=== PATIENT | female | born 1995 | race African-American/Black ===

== ENCOUNTER 2018-02-10 15:35 | Emergency (ER) | payer MEDICAID, OTHER ==
--- NOTE | 2018-02-10 15:42 | EDPHY ---
H & P Smoking Status: Current every day smoker Time Seen by Provider: 02/10/18 15:41 HPI/ROS: CHIEF COMPLAINT: Irregular periods and pelvic pain HISTORY OF PRESENT ILLNESS: Patient is a 23-year-old female here with her mother concern for regular periods for the last 2 months and lower abdominal pain. States she has had a Mirena in no for the last 2 and half years and has had monthly regular periods since then with no spotting in between her periods. The last 2 months she has had her regular menstrual cycle but has also had intermittent spotting and pelvic pain. She denies any vaginal discharge or history of STD. She has not checked herself her . She is not currently sexually active. She denies any fever or chills or change in appetite. She does report mild pain with urination but no fever or flank pain. She has no history of kidney stones. No history of abdominal surgeries. She is concerned that her IUD has moved. ROS As detailed in HPI (Baljinder Mandujano) Physical Exam: General: Alert and oriented. Nontoxic appearing. No acute distress HEENT: Pupils PERRLA. No oral lesions. Cardiopulmonary: Regular rate and rhythm. No lower extremity edema Abdomen: Soft and nontender abdomen with mild suprapubic tenderness. No right lower quadrant or right upper quadrant tenderness. No peritoneal signs. No CVA tenderness. Skin: [place] warm and dry. No lesions. Muscle skeletal: Moving all 4 extremities. Equal strength in upper extremities and lower extremities. Ambulatory. (Baljinder Mandujano) Constitutional: Initial Vital Signs Temperature (C) 36.7 C 02/10/18 15:35 Heart Rate 84 02/10/18 15:35 Respiratory Rate 16 02/10/18 15:35 Blood Pressure 130/93 H 02/10/18 15:35 O2 Sat (%) 98 02/10/18 15:35 O2 Delivery Mode Room Air Allergies/Adverse Reactions: Penicillins Allergy (Mild, Verified 02/10/18 15:40) Rash Home Medications: Medication Instructions Recorded Cephalexin [Keflex] 500 mg PO TID 7 Days cap 02/10/18 Iud 02/10/18 Phenazopyridine HCl [Pyridium] 200 mg PO PC #10 tab 02/10/18 Medical Decision Making - Diagnostics Imaging Results: Imaging Impressions Pelvic/Renal Ultrasound 02/10/18 15:52 Impression: 1. Appropriately-positioned intrauterine device. 2. There is a 4.3 x 3.1 x 3.8 cm solid vascular right ovarian mass (with the above differential considerations). Gynecologic consultation is suggested, and it may also be worthwhile to check a serum CA-125 level and an alpha- fetoprotein level. There is no evidence of torsion. Findings were discussed with Mar Toro PA-C at 17:22, on 02/10/2018. Abdomen CT 02/10/18 17:39 Impression: 1. Normal CT appearance of the appendix. 2. Mild constipation. 3. Appropriately-positioned intrauterine contraceptive device. 4. The right ovarian vascular solid mass is difficult to discern, and the prior pelvic sonogram report should be separately referenced (with differential considerations and follow-up, as mentioned). 5. Questionable mild urinary bladder wall thickening. Correlation with a urinalysis is suggested to exclude a UTI. Findings were discussed with Mar Toro PA-C at 18:08, on 02/10/2018. ED Course/Re-evaluation: 5:36 p.m.: I assumed care the patient from BILL Mandujano, pending ultrasound results. Ultrasound results (see full report by radiology) shows a solid vascular right ovarian mass. A consulted via telephone with Dr. Abigail Arango, OBGYN, at this time. I specifically inquired about tumor markers which she recommended against at this time. She recommended follow up in the office, form that this is more than likely dermoid cyst. Dr. Arango recommended follow- up in the next few weeks. I re-evaluated the patient at this time and discussed these results with the patient and mother and examined the patient. She has full slightly tender to palpation right lower quadrant . I recommended CT imaging to rule out appendicitis. Indications risks benefits discussed and patient verbally consents. 6:26 p.m.: CT abdomen pelvis is negative for appendicitis. Patient has been re -evaluated by myself. Plan will be discharge, treated with Keflex for cystitis , follow-up with OBGYN for her ovarian mass. Usual and customary abdominal precautions instructions provided. All questions and concerns addressed by myself. Care of patient under supervision of secondary supervising physician Dr Young with whom I discussed case. (Jass Toro) - Data Points Laboratory Results: Laboratory Results 02/10/18 16:00 02/10/18 16:00 02/10/18 02/10/18 02/10/18 16:50 16:00 16:00 WBC RBC Hgb Hct MCV MCH MCHC RDW Plt Count MPV Neut % (Auto) Lymph % (Auto) [place] % (Auto) Eos % (Auto) Baso % (Auto) Nucleat RBC Rel Count Absolute Neuts (auto) Absolute Lymphs (auto) Absolute Monos (auto) Absolute Eos (auto) Absolute Basos (auto) Absolute Nucleated RBC Immature Gran % Immature Gran # Sodium 139 mEq/L mEq/L (135-145) Potassium 4.2 mEq/L mEq/L (3.5-5.2) Chloride 107 mEq/L mEq/L (97-110) Carbon Dioxide 22 mEq/l mEq/l (22-31) Anion Gap 10 mEq/L mEq/L (6-14) BUN 9 mg/dL mg/dL (7-23) Creatinine 0.7 mg/dL mg/dL (0.6-1.0) Estimated GFR > 60 Glucose 110 mg/dL H mg/dL (70-100) Calcium 9.5 mg/dL mg/dL (8.5-10.4) Total Bilirubin 0.5 mg/dL mg/dL (0.1-1.4) AST 27 IU/L IU/L (14-46) ALT 13 IU/L IU/L (9-52) Alkaline Phosphatase 101 IU/L IU/L (38-126) Total Protein 8.0 g/dL g/dL (6.3-8.2) Albumin 4.2 g/dL g/dL (3.5-5.0) Beta HCG, Qual NEGATIVE Urine Color YELLOW Urine Appearance HAZY Urine pH 5.0 (5.0-7.5) Ur Specific [place] 1.024 (1.002-1.030) Urine Protein 1+ H (NEGATIVE) Urine Ketones NEGATIVE (NEGATIVE) Urine Blood 2+ H (NEGATIVE) Urine Nitrate NEGATIVE (NEGATIVE) Urine Bilirubin NEGATIVE (NEGATIVE) Urine Urobilinogen 2.0 EU H EU (0.2-1.0) Ur Leukocyte Esterase 2+ H (NEGATIVE) Urine RBC 10-15 /hpf H /hpf (0-3) Urine WBC 50-182 /hpf H /hpf (0-3) Ur Epithelial Cells TRACE /lpf /lpf (NONE-1+) Urine Mucus 3+ /lpf H /lpf (NONE-1+) Urine Glucose NEGATIVE (NEGATIVE) 02/10/18 16:00 WBC 6.11 10^3/uL 10^3/uL (3.80-9.50) RBC 4.77 10^6/uL 10^6/uL (4.18-5.33) Hgb 15.0 g/dL g/dL (12.6-16.3) Hct 43.7 % % (38.0-47.0) MCV 91.6 fL fL (81.5-99.8) MCH 31.4 pg pg (27.9-34.1) MCHC 34.3 g/dL g/dL (32.4-36.7) RDW 12.5 % % (11.5-15.2) Plt Count 309 10^3/uL 10^3/uL (150-400) MPV 10.6 fL fL (8.7-11.7) Neut % (Auto) 51.5 % % (39.3-74.2) Lymph % (Auto) 39.3 % % (15.0-45.0) Sebastian % (Auto) 6.9 % % (4.5-13.0) Eos % (Auto) 1.8 % % (0.6-7.6) Baso % (Auto) 0.3 % % (0.3-1.7) Nucleat RBC Rel Count 0.0 % % (0.0-0.2) Absolute Neuts (auto) 3.15 10^3/uL 10^3/uL (1.70-6.50) Absolute Lymphs (auto) 2.40 10^3/uL 10^3/uL (1.00-3.00) Absolute Monos (auto) 0.42 10^3/uL 10^3/uL (0.30-0.80) Absolute Eos (auto) 0.11 10^3/uL 10^3/uL (0.03-0.40) Absolute Basos (auto) 0.02 10^3/uL 10^3/uL (0.02-0.10) Absolute Nucleated RBC 0.00 10^3/uL 10^3/uL (0-0.01) Immature Gran % 0.2 % % (0.0-1.1) Immature Gran # 0.01 10^3/uL 10^3/uL (0.00-0.10) Sodium Potassium Chloride Carbon Dioxide Anion Gap BUN Creatinine Estimated GFR Glucose Calcium Total Bilirubin AST ALT Alkaline Phosphatase Total Protein Albumin Beta HCG, Qual Urine Color Urine Appearance Urine pH Ur Specific [place] Urine Protein Urine Ketones Urine Blood Urine Nitrate Urine Bilirubin Urine Urobilinogen Ur Leukocyte Esterase Urine RBC Urine WBC Ur Epithelial Cells Urine Mucus Urine Glucose Medications Given: Discontinued Medications Ketorolac Tromethamine (Toradol) 15 mg IVP EDNOW ONE Stop: 02/10/18 17:01 Last Admin: 02/10/18 17:01 Dose: 15 mg Departure - Departure Disposition: Home, Routine, Self-Care Clinical Impression: Ovarian mass, right Urinary tract infection Qualifiers: Urinary tract infection type: acute cystitis Hematuria presence: with hematuria Qualified Code(s): N30.01 - Acute cystitis with hematuria Condition: Good Instructions: Urinary Tract Infection in Women (ED) Additional Instructions: Seek immediate medical attention if you develop new or worsening symptoms, if you develop fevers, chills, inability to tolerate oral intake or any other symptoms that concerns you. Referrals: Abigail Arango MD [Medical Doctor] - 5-7 days, call for appt. Prescriptions: Cephalexin [Keflex] 500 mg PO TID 7 Days cap Phenazopyridine HCl [Pyridium] 200 mg PO PC #10 tab
[2018-02-10 16:18] LABS: PLATELET COUNT 309 10^3/uL (150-400)
[2018-02-10] MEDS ORDERED: KETOROLAC 15 MG/1 ML SDV ONE (16:57)
[2018-02-10] MEDS ORDERED: KETOROLAC 15 MG/1 ML SDV IVP ONE (17:00)
[2018-02-10] MEDS ORDERED: IOPAMIDOL (ISOVUE-300) 100 ML BTL ONE (17:41)
[2018-02-10 18:44] VITALS: BP 124/84
== END 2018-02-10 18:51 | disposition home or self-care (01) ==
DX: N30.01 Acute cystitis with hematuria (principal); N83.9 Noninflammatory disorder of ovary, fallopian tube and broad ligament, unspecified
CPT/HCPCS: 96374; J1885; Q9967

== ENCOUNTER 2018-03-27 23:07 | Emergency (ER) | payer MEDICAID ==
[2018-03-27 23:14] VITALS: BP 137/88
--- NOTE | 2018-03-27 23:24 | EDPHY ---
H & P Stated Complaint: pt had a growth removed from ovary and cough and thinks something popped Time Seen by Provider: 03/27/18 23:18 HPI/ROS: HPI: This is a 23-year-old female who presents with Chief Complaint: pt had a growth removed from ovary and cough and thinks something popped Location: Abdomen Quality: Suture check Duration: 30 min to 1 hr prior to removal Signs and Symptoms: no fever, no nausea, no vomiting, no hematemesis, no blood in stool, no abdominal bloating, no diarrhea, no back pain, no urinary symptoms , no vaginal bleeding/discharge no indigestion, no chest pain, no shortness of breath Timing: Acute Severity: Mild Context: Patient reports that on March 19, 2018 she had laparoscopic abdominal surgery performed to remove a growth on her ovary. She reports that she had her drain removed last week by the surgeon. This evening she coughed and felt a popping sensation near her belly button. She denies any discharge, redness, warmth, tenderness. Steri-Strips are still in place over portal sites. Modifying Factors: None Comment: ROS: A comprehensive 10 system review of systems is otherwise negative aside from elements mentioned in the history of present illness. MEDICAL/SURGICAL/SOCIAL HISTORY: Medical history: Generally healthy. Does not take any regular medications. LMP 2-3 weeks ago. Surgical history: Denies Social history: Current every day smoker. Family history noncontributory. CONSTITUTIONAL: Obese, polite and cooperative, young adult black female, awake and alert, no obvious distress HEENT: Atraumatic and normocephalic, PERRL, EOMI. Nares patent; no rhinorrhea; no nasal mucosal edema. Tympanic membranes clear. Oropharynx clear, no exudate and moist pink mucosa. Airway patent. No lymphadenopathy. No meningismus. Cardiovascular: Normal S1/S2, regular rate, regular rhythm, without murmur rub or gallop. PULMONARY/CHEST: Symmetrical and nontender. Clear to auscultation bilaterally. Good air movement. No accessory muscle usage. ABDOMEN: Soft, 3 portal sites have Steri-Strips in place; no signs of wound dehiscence; no erythema; no discharge. nondistended, nontender, no rebound, no guarding, no peritoneal signs, no masses or organomegaly. No CVAT. EXTREMITIES: 2/2 pulses, strength 5/5, no deformities, no clubbing, no cyanosis or edema. NEUROLOGICAL: no focal neuro deficits. GCS 15. SKIN: Warm and dry, no erythema. no rash. Good capillary refill. Source: Patient, Old records Exam Limitations: No limitations - Personal History LMP (Females 10-55): 15-21 Days Ago Current Tetanus/Diphtheria Vaccine: Yes Current Tetanus Diphtheria and Acellular Pertussis (TDAP): Yes - Medical/Surgical History Hx Asthma: No Hx Chronic Respiratory Disease: No Hx Diabetes: No Hx Cardiac Disease: No Hx Renal Disease: No Hx Cirrhosis: No Hx Alcoholism: No Hx HIV/AIDS: No Hx Splenectomy or Spleen Trauma: No Other PMH: 03/19 growth removed from ovary - Social History Smoking Status: Current every day smoker Constitutional: Initial Vital Signs Temperature (C) 37.1 C 03/27/18 23:10 Heart Rate 88 03/27/18 23:10 Respiratory Rate 16 03/27/18 23:10 Blood Pressure 137/88 H 03/27/18 23:10 O2 Sat (%) 97 03/27/18 23:10 O2 Delivery Mode Room Air Allergies/Adverse Reactions: Penicillins Allergy (Mild, Verified 02/10/18 15:40) Rash Sulfa (Sulfonamide Antibiotics) Allergy (Verified 03/27/18 23:13) Home Medications: Medication Instructions Recorded NK [No Known Home Meds] 03/27/18 Medical Decision Making ED Course/Re-evaluation: No signs of cellulitis, abscess, wound dehiscence Old Steri-Strips removed and area cleaned with soap and water Mastisol and Steri-Strips reapplied Verbal and written wound care instructions provided Patient has follow-up appointment on April 03 with OBGYN. This patient was seen under the supervision of my secondary supervising physician. I evaluated care for this patient with attending. Discussed this patient with Dr. Alaniz. Differential Diagnosis: Differential diagnosis includes but is not limited to abscess, cellulitis, suture related infection, wound dehiscence. Departure - Departure Disposition: Home, Routine, Self-Care Clinical Impression: Visit for wound check Condition: Good Instructions: Laparoscopic Excision of Ovarian Cysts (DC) Additional Instructions: Keep the Steri-Strips dry and in place until seen for follow-up by OBGYN. Keep follow-up appointment with surgeon on April 03. Referrals: [facility],. [Department Of Mathematics Chair] - 04/03/18 (OBGYN)
== END 2018-03-27 23:41 | disposition home or self-care (01) ==
DX: Z48.00 Encounter for change or removal of nonsurgical wound dressing (principal); Z98.890 Other specified postprocedural states